=== PATIENT | male | born 1950 | race Caucasian/White ===

== ENCOUNTER 2022-04-03 00:55 | Day surgery (SDC) | payer MEDICARE, SELFPAY ==
[2022-03-25 11:39] VITALS: BMI 34.9
[2022-04-03 06:18] VITALS: BP 129/72; PULSE 76; RESP 16; TEMP 36.3; O2SAT 100; BMI 34.2
[2022-04-03 06:32] LABS: Glucose Point of Care 106 mg/dl (65-105)
[2022-04-03] MEDS: LACTATED RINGERS 1,000 ML 150 ML IV CONT (06:32)
--- NOTE | 2022-04-03 07:26 | WPDANESEPPF ---
Anes - Initial Pre Proc Eval Procedure: Operation Date: 04/03/22 07:30 Proposed Procedures p Screening Colonoscopy - Jone Winn MD Date/Time: 04/03/22 07:26 Surgeon: Jone Winn MD Pre Op Diagnosis: hx of polyps, family hx colon ca Patient Data Age: 71 Gender: M Height: 1.83 m Weight: 114.5 kg Last Vital Signs Temp 97.4 F L 04/03/22 06:18 Pulse 76 04/03/22 06:18 Resp 16 04/03/22 06:18 BP 129/72 04/03/22 06:18 Pulse Ox 100 04/03/22 06:18 O2 Del Method Room Air 04/03/22 06:18 Allergies Allergy/AdvReac Type Severity Reaction Status Date / Time No Known Allergies Allergy Verified 04/03/22 06:15 Home Medications Medication Instructions Recorded Confirmed Type Adult Probiotic 1 tab-cap PO DAILY 03/25/22 04/03/22 History amlodipine 5 mg tablet 5 mg PO DAILY 03/25/22 04/03/22 History apixaban 5 mg tablet (Eliquis) 5 mg PO BID 03/25/22 04/03/22 History cetirizine 10 mg tablet (Zyrtec) 10 mg PO DAILY 03/25/22 04/03/22 History cholecalciferol (vitamin D3) 50 50 mcg PO DAILY 03/25/22 04/03/22 History mcg (2,000 unit) tablet (Vitamin D3) empagliflozin 25 mg tablet 12.5 mg PO DAILY 03/25/22 04/03/22 History finasteride 5 mg tablet 5 mg PO DAILY 03/25/22 04/03/22 History fluoxetine 40 mg capsule 40 mg PO DAILY 03/25/22 04/03/22 History furosemide 20 mg tablet 20 mg PO DAILY 03/25/22 04/03/22 History isosorbide mononitrate 30 mg 30 mg PO DAILY 03/25/22 04/03/22 History tablet,extended release 24 hr lisinopril 20 mg tablet 20 mg PO DAILY 03/25/22 04/03/22 History metformin 500 mg tablet 250 mg PO BID 03/25/22 04/03/22 History metoprolol succinate 25 mg 12.5 mg PO DAILY 03/25/22 04/03/22 History tablet,extended release 24 hr psyllium husk 3.4 gram/5.4 gram 1 tsp PO DAILY 03/25/22 04/03/22 History oral powder (Metamucil) rabeprazole 20 mg tablet,delayed 20 mg PO BID 03/25/22 04/03/22 History release rosuvastatin 40 mg tablet 20 mg PO HS 03/25/22 04/03/22 History spironolactone 25 mg tablet 25 mg PO DAILY 03/25/22 04/03/22 History Laboratory Tests 04/03/22 06:24 POC Capillary Glucose 106 mg/dl H mg/dl (65-105) Patient hx anesthesia problems: none Family hx anesthesia problems: none Results Review: All pre-operative results and documents have been reviewed as part of the pre-operative evaluation. [facility] Social History Social History Smoking packs per day: 3 Smoking cigarettes per day: 60.0 Years smoked: 25 Smoking pack-years: 75.00 Tobacco type: cigarettes Alcohol intake: current Drinks per week: 12 Alcohol use details: BEERS Substance use: never Substance use type: does not use Living arrangements: with family Spiritual care concerns: No Anes - Eval Final PreProcedure Day of Procedure 04/03/22 07:26 Patient weight: obese Heart: regular rate and rhythm Lungs: clear to auscultation Airway: Mallampati scale class III Neurological: alert and oriented Last oral intake: >/= 8 hours ASA classification: III Emergent: no Anesthetic plan: proceed Anesthesia type and monitoring: general GIVS and standard monitoring Results Review: All pre-operative results and documents have been reviewed as part of the pre-operative evaluation. Informed Consent: The patient's anesthetic plan and its attendant risks and benefits were discussed with the patient/family/POA. Questions were solicited and answers provided to the satisfaction of the patient/family/POA.
--- NOTE | 2022-04-03 07:28 | PM.HPGS ---
History of Present Illness History of Present Illness Consent: Risks, benefits, and alternatives have been discussed and questions answered. Patient agrees to proceed with procedure. Chief complaint: hx of polyps, family hx colon ca Narrative: Fitz Alberto is a 71 year old male Presents for screening colonoscopy. Patient's current weight appetite bowel movements are normal. Patient denies abdominal pain. He has had no bleeding. Patient reports that his mother had colon cancer. Patient self was found to have a large colon polyp requiring surgical resection 2011. Patient presents today for follow-up colonoscopy. Previous workup apparently done in [place]. Review of Systems Review of Systems: Rib review of systems is noncontributory. [facility] Social History Social History Smoking packs per day: 3 Smoking cigarettes per day: 60.0 Years smoked: 25 Smoking pack-years: 75.00 Tobacco type: cigarettes Alcohol intake: current Drinks per week: 12 Alcohol use details: BEERS Substance use: never Substance use type: does not use Living arrangements: with family Spiritual care concerns: No Meds Home Medications and Allergies Home Medications Medication Instructions Recorded Confirmed Type Adult Probiotic 1 tab-cap PO DAILY 03/25/22 04/03/22 History amlodipine 5 mg tablet 5 mg PO DAILY 03/25/22 04/03/22 History apixaban 5 mg tablet (Eliquis) 5 mg PO BID 03/25/22 04/03/22 History cetirizine 10 mg tablet (Zyrtec) 10 mg PO DAILY 03/25/22 04/03/22 History cholecalciferol (vitamin D3) 50 50 mcg PO DAILY 03/25/22 04/03/22 History mcg (2,000 unit) tablet (Vitamin D3) empagliflozin 25 mg tablet 12.5 mg PO DAILY 03/25/22 04/03/22 History finasteride 5 mg tablet 5 mg PO DAILY 03/25/22 04/03/22 History fluoxetine 40 mg capsule 40 mg PO DAILY 03/25/22 04/03/22 History furosemide 20 mg tablet 20 mg PO DAILY 03/25/22 04/03/22 History isosorbide mononitrate 30 mg 30 mg PO DAILY 03/25/22 04/03/22 History tablet,extended release 24 hr lisinopril 20 mg tablet 20 mg PO DAILY 03/25/22 04/03/22 History metformin 500 mg tablet 250 mg PO BID 03/25/22 04/03/22 History metoprolol succinate 25 mg 12.5 mg PO DAILY 03/25/22 04/03/22 History tablet,extended release 24 hr psyllium husk 3.4 gram/5.4 gram 1 tsp PO DAILY 03/25/22 04/03/22 History oral powder (Metamucil) rabeprazole 20 mg tablet,delayed 20 mg PO BID 03/25/22 04/03/22 History release rosuvastatin 40 mg tablet 20 mg PO HS 03/25/22 04/03/22 History spironolactone 25 mg tablet 25 mg PO DAILY 03/25/22 04/03/22 History Allergies Allergy/AdvReac Type Severity Reaction Status Date / Time No Known Allergies Allergy Verified 04/03/22 06:15 Vital Signs Vital Signs - 24 hr 04/03/22 06:18 Temperature 97.4 F L Pulse Rate 76 Respiratory Rate 16 Blood Pressure 129/72 Pulse Oximetry 100 Oxygen Delivery Room Air Exam Narrative: For physical exam reveals patient to be alert. Vital signs stable. HEENT exam is unremarkable. Patient is anicteric. Lungs are clear to auscultation and percussion. Heart is without murmur or extra sounds. Abdomen bowel sounds are present soft nontender with no organomegaly. Digital external rectal exam is normal. Assessment and Plan Assessment and plan (1) History of colon polyps: Code(s): Z86.010 - Personal history of colonic polyps Status: Acute Assessment and Plan: Patient was found to have large colon polyp requiring surgical resection 2011. Plan for surveillance colonoscopy now and consider this at least every 5 years in the future. Further recommendations may be given after colonoscopy. (2) Family history of colon cancer in mother: Code(s): Z80.0 - Family history of malignant neoplasm of digestive organs Status: Acute Assessment and Plan: Patient's mother had colon cancer. Plan for surveillance colonoscopy at this time.
[2022-04-03 07:59] VITALS: BP 102/63; PULSE 70; RESP 20; O2SAT 93
[2022-04-03 08:09] VITALS: BP 98/59; PULSE 70; RESP 19; O2SAT 95
--- NOTE | 2022-04-03 08:12 | SUR.PHASEII ---
Educated patient to resume Eliquis tomorrow 04/04/[address] Winn verbal order.
[2022-04-03 08:19] VITALS: BP 110/67; PULSE 70; RESP 14; O2SAT 96
== END 2022-04-03 08:29 | disposition home or self-care (01) ==
PROVIDERS: PCP Pediatrics; Visit Provider Internal Medicine Gastroenterology
PROC: 0DJD8ZZ Inspection of Lower Intestinal Tract, Via Natural or Artificial Opening Endoscopic (ICD-10-PCS; CPT 45378; principal; 2022-04-03 07:30)
DX: Z12.11 Encounter for screening for malignant neoplasm of colon (principal); D12.2 Benign neoplasm of ascending colon; K64.8 Other hemorrhoids; K57.30 Diverticulosis of large intestine without perforation or abscess without bleeding; Z80.0 Family history of malignant neoplasm of digestive organs; Z79.84 Long term (current) use of oral hypoglycemic drugs; F17.210 Nicotine dependence, cigarettes, uncomplicated; E66.9 Obesity, unspecified; Z68.34 Body mass index [BMI] 34.0-34.9, adult; Z79.01 Long term (current) use of anticoagulants
CPT/HCPCS: 45385; 82948; 88305; J2704; J7120

== ENCOUNTER 2023-06-29 13:50 | Outpatient (CLI) | payer MEDICARE, SELFPAY ==
--- NOTE | 2023-06-29 15:08 | ECG_ITS ---
SEE SCANNED COPY FOR CONFIRMED REPORT MTDD
[2023-06-29 15:57] LABS: Basophils Percent Auto 0.7 % (0.2-1.2); Eosinophils Absolute Auto 0.2 K/mm3 (0-0.3); Eosinophils Percent Auto 2.6 % (0-4.4); Hematocrit 43.8 % (42.0-52.0); Immature Granulocyte Absolute 0.01 K/mm3 (0.00-0.031); Immature Granulocyte Percent A 0.2 % (0-0.5); Lymphocytes Absolute Auto 1.13 K/mm3 (0.9-3.2); Lymphocytes Percent Auto 19.3 % (18.3-44.2); Mean Corpuscular HGB Conc 34.2 g/dl (32-36); Mean Corpuscular Hemoglobin 32.5 pg (26-34); Mean Corpuscular Volume 94.8 fl (80-100); Mean Platelet Volume 9.4 fl (7.4-10.4); Monocytes Absolute Auto 0.9 K/mm3 (0.1-0.6); Neutrophils Absolute Auto 3.6 K/mm3 (1.3-6.7); Neutrophils Percent Auto 62.2 % (45.5-73.1); Platelet Count Result 165 k/mm3 (150-375); Red Blood Count 4.62 M/mm3 (4.6-6.20); Red Cell Distribution Width 13.3 % (11.5-14.5); White Blood Count 5.9 K/mm3 (4.5-10.0)
[2023-06-29 16:06] LABS: Urine Cotinine NEGATIVE
[2023-06-29 16:07] LABS: Albumin Level 4.6 g/dL (3.5-5.1); Anion Gap 5 mmol/L (4-12); Blood Urea Nitrogen 12 mg/dL (9-20); Calcium 9.4 mg/dL (8.4-10.2); Carbon Dioxide 29 mmol/L (22-30); Chloride 102 mmol/L (98-107); Estimated Glomerular Filt Rate > 60; Glucose 90 mg/dL (65-110); Hemoglobin A1C 4.9 % (<5.7); Sodium 136 mmol/L (137-145)
== END 2023-06-29 13:51 | disposition home or self-care (01) ==
LOC: ANHSURGERY 13:55
PROVIDERS: PCP Pediatrics; Visit Provider Orthopaedic Surgery
DX: M17.12 Unilateral primary osteoarthritis, left knee (principal); Z01.818 Encounter for other preprocedural examination
CPT/HCPCS: 80048; 80307; 82040; 83036; 85025; 87081; 93005

== ENCOUNTER 2023-07-16 00:45 | Day surgery (SDC) | payer MEDICARE, SELFPAY ==
[2023-06-29 14:01] VITALS: BMI 35.3
--- NOTE | 2023-06-29 14:34 | PC.NURSE ---
Report to the Outpatient Waiting Room, entrance under the green pavilion located off [facility], at time _0600 on date __07/16/23 . Planned Procedure Time: __729 . Time changes happen often and if your time is changed the preop area will call you the afternoon before. - You and your visitor will be asked to self-screen and do not enter if you have any COVID symptoms. - A mask is optional within the hospital at this time. Patients may have clear liquids (water, carbonated beverages, clear teas, apple juice) until 3 hours prior to surgery(4:30 AM) with a maximum of 20 ounces. - No food from midnight until time of surgery - Infants may have breast milk until 4 hours before surgery, formula 6 hours prior to surgery. - Children will be allowed to drink immediately following surgery. If applicable, please bring a bottle or sippy cup to assist with drinking. Juice, water, soda, and popsicles are readily available. For infants on formula, please bring formula the day of surgery. Pacifiers are allowed. Take the following medications with a SIP of water the morning of surgery: ___AMLODIPINE,FLUOXETINE,ISOSORBIDE,METOPROLOL DO NOT STOP ANY OF YOUR OTHER PRESCRIPTION MEDICATIONS PRIOR TO SURGERY ?EXCEPT THE FOLLOWING Medications to discontinue per physician __HOLD ELIQUIS 3 DAYS PRE OP PER DR MCLEAN/DR DUNCAN LAST DOSE 07/12/23 BUT TAKE 81MG ASPIRIN ____HOLD ALL VITAMINS AND SUPPLEMENTS 3 DAYS PRE OP.LAST DOSE 07/12/23 TOTAL JOINT CLASS 07/01/23 AT 10 AM Please no make-up, nail turkish, hairspray, perfume, deodorant, or body powder the day of surgery. No jewelry (including any body piercings) or valuables the day of surgery, leave them at home. Please take a shower or bath the night before, or the morning of, surgery with an antibacterial soap. Wear comfortable, loose fitting clothing. Children are encouraged to wear pajamas. - Jewelry must be removed prior to entering the operating room. Rings and piercings that are not removed may be cut off. - The hospital will not accept responsibility for valuables. - Please leave all valuables, including medications, at home the day of surgery. If you are going home after surgery, a licensed industrial tractor driver must drive you home. - NO public transportation without another adult if you receive anesthesia. - We recommend that an adult stay with you for 24 hours following discharge. - We also recommend that you do not drive, make important decision, drink alcoholic beverages, or take any drugs that were not prescribed by your health care provider for at least 24 hours after your discharge time. Follow any additional instructions given to you from your surgeon. If you or anyone in your household have experienced Covid symptoms in the past week, please notify your surgeon or the nurse liaison at the phone number below for possible testing. VRBAL AND WRITTEN instructions given to _PT AND RICARDA and asked if any additional questions and then verbalized understanding. Patient advised to call surgeon office or pre surgery nurse liaison [phone] if any additional questions.
[2023-06-29 14:59] VITALS: BP 110/60; PULSE 70; RESP 18; TEMP 37.1; O2SAT 97
--- NOTE | 2023-07-15 13:10 | PM.IMHP ---
H&P: HPI History of Present Illness Date/Time: 07/15/23 13:10 Chief Complaint: left osteoarthritis left Narrative: is 72-year-old gentleman who presents for left total knee arthroplasty. Patient of Dr.Siefken [place]. He has had prior cortisone injection gave him only short-term relief. He takes Eliquis for atrial fibrillation and cannot take nonsteroidal anti-inflammatory medication. He is limited with his activities and has pain on a daily basis with his left knee and would like to proceed with total knee replacement. Patient's x-rays demonstrate [id number] medial compartment osteoarthritis and mild patellofemoral arthritis in the left knee. Patient had a cortisone injection in his right knee on 06/12/2023. Patient had cardiology evaluation in August of 2022 including coronary artery catheterization which per the patient showed 2 small blockages in his coronary arteries both of which were too small to stent. The report to the catheterization indicated normal right and left side filling pressures normal rest pulmonary artery pressure normal mean pulmonary capillary wedge pressure. There was evidence of mild to moderate coronary artery disease. There was slow coronary flow with ectatic right coronary artery. Was felt that he might have a component of microvascular dysfunction causing some of his atypical chest pain and he was placed on increased dose of isosorbide and Ranexa. Patient denies any exertional chest pain but does have chronic exertional dyspnea without recent change. He was felt to proceed with knee replacement surgery with low cardiac risk without further cardiovascular workup. Patient was advised to hold his at Eliquis 3 days before surgery and start 81 mg baby aspirin daily to lower his cardiovascular risk because of his mild to moderate coronary artery disease. Patient has a history of chronic diastolic congestive heart failure listed in the past. [facility] Past Medical History Medical History (Updated 06/14/23 @ 15:22 by Louis Maza MD) Afib CAD (coronary artery disease) Diabetes Heart disease Pacemaker Surgical History Surgical History (Updated 06/12/23 @ 09:03 by Zena Hernandes CMA) History of arthroscopic knee surgery History of cardiac radiofrequency ablation History of cervical spinal surgery 1986 History of cholecystectomy 1995 History of colon surgery History of hand surgery History of lumbar surgery 1995, 1997 History of shoulder surgery History of sinus surgery , Social History Social History (Updated 06/12/23 @ 09:10 by Debo Ruff CMA) Smoking packs per day: 3 Smoking cigarettes per day: 60.0 Years smoked: 25 Smoking pack-years: 75.00 Smoking status: Former smoker Tobacco type: cigarettes Smoking end date: 03/02/86 Additional smoking assessment comments: DENIES ANY FORM OF TOBACCO USE Alcohol intake: current Drinks per week: 12 Alcohol use details: BEERS Substance use: never Substance use type: does not use Do You Feel Safe in your Home?: Yes Lack of Transportation: No Lack of Food: Never True Current Housing: I Have Housing Concerned About Future Housing: No Difficulty Paying Gas/Electric Bills: No Difficulty Paying for Meds: No Currently Unemployed: No Education: High School Diploma/GED Difficulty w/ Childcare or Family Care: No Living arrangements: with family Occupation/Education: retired Spiritual care concerns: No Meds Home Medications and Allergies Home Medications Medication Instructions Recorded Confirmed Type Adult Probiotic 1 tab-cap PO DAILY 03/25/22 06/29/23 History amlodipine 5 mg tablet 5 mg PO DAILY 03/25/22 06/29/23 History apixaban 5 mg tablet (Eliquis) 5 mg PO BID 03/25/22 06/29/23 History cetirizine 10 mg tablet (Zyrtec) 10 mg PO DAILY 03/25/22 06/29/23 History cholecalciferol (vitamin D3) 50 50 mcg PO DAILY 03/25/22 06/29/23 History mcg (2,000 unit) t
[2023-07-16] VITALS (12 sets, daily range): BP systolic 89–137; BP diastolic 52–80; PULSE 70–75; RESP 9–20; TEMP 36.1–37.1; O2SAT 91–98
--- NOTE | ~2023-07-16 | XR_ITS ---
EXAMINATION: [id number] DATE: 07/16/2023 11:51 INDICATION: Postoperative evaluation following left total knee arthroplasty. TECHNIQUE: Anteroposterior and lateral views of the left knee were obtained. COMPARISON: None. FINDINGS: Left total knee arthroplasty without patellar resurfacing appears well seated and in near anatomic al ignment. No fractures identified. Expected postoperative subcutaneous and intra-articular gas. IMPRESSION: 1. Left total knee arthroplasty, negative for postoperative purposes. Reviewed, dictated and finalized at location A.
[2023-07-16] MEDS: ACETAMINOPHEN 500 MG TABLET 1000 MG PO ×3 (06:35→20:31)
[2023-07-16] MEDS: LACTATED RINGERS 1,000 ML 30 ML IV CONT ×2 (06:40→11:50)
[2023-07-16] MEDS: VANCOMYCIN 1,750 MG/NS 500 ML BAG 250 MG IVPB (06:40)
[2023-07-16] MEDS: TRANEXAMIC ACID 1,000MG/ISO100 1,000 MG/100 ML BAG 200 MG IVPB (06:40)
[2023-07-16 06:55] LABS: Glucose Point of Care 119 mg/dl (65-105)
--- NOTE | 2023-07-16 07:05 | WPDHPUPDATE1 ---
History and Physical Update Update Date/Time: 07/16/23 07:05 History and Physical has been reviewed, including an updated exam of the patient. There are NO changes in the patient's condition. Risks, benefits, and alternatives have been discussed and questions answered. Patient agrees to proceed with procedure.
--- NOTE | 2023-07-16 07:17 | WPDANESEPPF ---
Anes - Initial Pre Proc Eval Procedure: Operation Date: 07/16/23 07:30 Proposed Procedures p Left Total Knee Arthroplasty - Louis Maza MD Date/Time: 07/16/23 07:17 Surgeon: Louis Maza MD Pre Op Diagnosis: OA left knee Patient Data Age: 72 Gender: M Height: 1.82 m Weight: 115.7 kg Last Vital Signs Temp 98.7 F 06/29/23 14:59 Pulse 70 06/29/23 14:59 Resp 18 06/29/23 14:59 BP 110/60 06/29/23 14:59 Pulse Ox 97 06/29/23 14:59 O2 Del Method Room Air 06/29/23 14:59 Allergies Allergy/AdvReac Type Severity Reaction Status Date / Time No Known Allergies Allergy Verified 06/29/23 14:02 Home Medications Medication Instructions Recorded Confirmed Type Adult Probiotic 1 tab-cap PO DAILY 03/25/22 07/16/23 History amlodipine 5 mg tablet 5 mg PO DAILY 03/25/22 07/16/23 History apixaban 5 mg tablet (Eliquis) 5 mg PO BID 03/25/22 07/16/23 History cetirizine 10 mg tablet (Zyrtec) 10 mg PO DAILY PRN ALLERGIES 03/25/22 06/29/23 History cholecalciferol (vitamin D3) 50 50 mcg PO DAILY 03/25/22 07/16/23 History mcg (2,000 unit) tablet (Vitamin D3) empagliflozin 25 mg tablet 12.5 mg PO DAILY 03/25/22 07/16/23 History finasteride 5 mg tablet 5 mg PO DAILY 03/25/22 07/16/23 History fluoxetine 40 mg capsule 40 mg PO DAILY 03/25/22 07/16/23 History furosemide 20 mg tablet 20 mg PO DAILY 03/25/22 07/16/23 History isosorbide mononitrate 30 mg 60 mg PO DAILY 03/25/22 07/16/23 History tablet,extended release 24 hr lisinopril 20 mg tablet 20 mg PO DAILY 03/25/22 07/16/23 History metoprolol succinate 25 mg 25 mg PO DAILY 03/25/22 07/16/23 History tablet,extended release 24 hr psyllium husk 3.4 gram/5.4 gram 1 tsp PO DAILY 03/25/22 07/16/23 History oral powder (Metamucil) rabeprazole 20 mg tablet,delayed 20 mg PO BID 03/25/22 07/16/23 History release rosuvastatin 40 mg tablet 20 mg PO HS 03/25/22 07/16/23 History spironolactone 25 mg tablet 25 mg PO DAILY 03/25/22 07/16/23 History azelastine 137 mcg-fluticasone 50 1 spray intranasal PRN PRN Allergy 06/12/23 06/29/23 History mcg/spray nasal spray Symptoms fluticasone propionate 50 2 spray intranasal PRN PRN Allergy 06/12/23 06/29/23 History mcg/actuation nasal Symptoms spray,suspension (Allergy Relief (fluticasone)) nitroglycerin 0.4 mg sublingual 0.4 mg sublingual Q5M PRN Chest 06/12/23 06/29/23 History tablet Pain tizanidine 4 mg capsule 4 mg PO DAILY PRN Muscle Pain 06/12/23 07/16/23 History acetaminophen 500 mg capsule 1,000 mg PO Q6H PRN Pain 06/29/23 06/29/23 History Laboratory Tests 07/16/23 07/16/23 06:31 06:41 POC Capillary Glucose 119 H mg/dl (65-105) Blood Type Pending Antibody Screen Pending Patient hx anesthesia problems: none Family hx anesthesia problems: none Results Review: All pre-operative results and documents have been reviewed as part of the pre-operative evaluation. [facility] Past Medical History Medical History Afib CAD (coronary artery disease) Diabetes Heart disease Pacemaker Surgical History Surgical History History of arthroscopic knee surgery History of cardiac radiofrequency ablation History of cervical spinal surgery 1986 History of cholecystectomy 1995 History of colon surgery History of hand surgery History of lumbar surgery 1995, 1997 History of shoulder surgery History of sinus surgery , Social History Social History Smoking packs per day: 3 Smoking cigarettes per day: 60.0 Years smoked: 25 Smoking pack-years: 75.00 Smoking status: Former smoker Tobacco type: cigarettes Smoking end date: 03/02/86 Additional smoking assessment comments: DENIES ANY FORM OF TOBACCO USE Alcohol intake: current Drinks per week: 12 Al
[2023-07-16] MEDS: ceFAZolin 2 GM/D5W 50 ML 2 GM/50 ML BAG IVPB ×3 (07:37→23:25)
[2023-07-16] MEDS: ceFAZolin SODIUM 1 GM VIAL 3 GM (08:16)
[2023-07-16] MEDS: SODIUM CHLORIDE 0.9% IV 37.7 ML, MORPHINE SULFATE INJ (*CRX) 2 MG, ROPivacaine HCL 1% 2... INFILTRATE (08:17)
[2023-07-16] MEDS: GENTAMICIN BONE CEMENT REFOBACIN 1 EACH TOPICAL (09:55)
[2023-07-16] MEDS: ceFAZolin SODIUM 1 GM VIAL 2 GM IV PUSH (10:11)
[2023-07-16] MEDS: TRANEXAMIC ACID 1,000 MG/10 ML AMPUL 1000 MG IV PUSH (10:11)
[2023-07-16 12:08] LABS: Glucose Point of Care 172 mg/dl (65-105)
--- NOTE | 2023-07-16 12:26 | W.PM.PROC2 ---
Procedure Note - Detailed Date of Procedure 07/16/23 Pre-op Diagnosis OA left knee Post-op Diagnosis Same Procedure Performed left total knee arthroplasty Surgeon Louis Maza MD Emergency Management Coordinator [facility] Anesthesia General Description of Procedure patient was brought to the operating room and general anesthesia was administered. He received 2 g Ancef weight based vancomycin 1 g of tranexamic acid preoperatively left knee prepped draped usual fashion. Limb was exsanguinated tourniquet elevated 250 mmHg. Subsequent elevation was to 275 as he became a little bit hypertensive. A 7 in longitudinal midline incision was used and a standard parapatellar arthrotomy medialized. Infrapatellar and suprapatellar fat pads were excised the quadriceps synovectomy carried out. Patella was in excellent condition and I felt suitable for non resurfacing. A conservative lateral facetectomy was performed. A guide grzegorz was inserted on femoral canal after aspiration of canal contents using the 5 degree valgus cutting bushing 9 mm of bone removed the distal femur. The tibial plateau was cut perpendicular to the axis of the tibia removing 2 mm of bone from the low point medial tibial plateau. Meniscal remnants were excised and the PCL was recessed. Flexion gap at 90? measured 9 mm medially 11 mm laterally. Femoral sizing guide was applied set at 3? of external rotation which matched Whitesides line. Posterior referencing pinholes were placed. The 72.5 vanguard cutting block was applied the AP and chamfer cuts were made and the femoral component was an excellent fit flush with the anterior cortex and the component was 2 mm narrower than the distal with. The tibia was sized to a size 79 which fit line to line posterolateral to anteromedial placed at proper rotation. This was punched and we trialed with the 10 insert. At 90? there was 2 mm of play medially but no play laterally and was little bit tight laterally to anterior posterior drawer. In extension the knee lacked about 3? of extension and had mm of play medially no play laterally. In assessing the alignment of the tibial cut, I felt we were in 1-2 degrees of varus and therefore I elected to carefully recut the tibia making a flush cut medially and removing about 1/2 mm of bone from the lateral plateau. We confirmed that the tibial tray sat flush with no rocking and pre punched and this time with the 10 insert on trialing the knee had 1 mm of lateral opening 2 mm of medial opening and with the arthrotomy closed with towel clips 1 mm medial opening and excellent AP stability and gravity flexion to 140 with no lift off if poly. And extension we had a barely positive bounce with them only a mm of play medially and laterally. With the arthrotomy approximated, there was a little bit more flexion lacking. Therefore an additional 1 mm bone was removed the distal femur. Posterior femoral osteophytes were minimal but posterior femoral bone was carefully removed. On trialing the knee came out to full extension with negative bounce 1/2 mm of medial lateral opening excellent stability in all positions. Patellar tracking was normal. Lug holes were drilled the distal femur trial and since we had put the tourniquet down at 90 minutes we re-exsanguinated the leg tourniquet was really mated this time. A step drill was used to make numerous perforations in the bone cut surfaces as the bone was very dense and the bony surfaces thoroughly irrigated dried. Using 2 batches of methylmethacrylate 1 the gentamicin powder, cement was immediately applied the 79 tibial component then the 72.5 left CR femoral component. Cement applied the tibia pressurized tibial component fully seated cement applied to the femur the femoral component fully seated the knee brought into extension with 11 mm 5 1 insert for cement pressurization the tourniquet released. Total tourniquet time was about 105 minutes. After cement hardening excess cement was sought f
--- NOTE | 2023-07-16 14:08 | PC.NURSE ---
This patient, Fitz Alberto, was admitted to [facility] Room 314-02. Patient/family oriented to hospital policies and general routines including ID bracelet, bed and alarms, visiting hours, pain management, procedures, bathroom and other care routines, personal items, smoking policy, room service/diet, and visiting hours. Information on how to activate the Rapid Response Team has been discussed. Patient/Family are encouraged to report perceived risks to care and to ask questions if they do not understand what they are told or what they should do.
[2023-07-16] MEDS: SODIUM CHLORIDE 0.9% IV 1,000 ML 125 ML IV CONT (15:56)
[2023-07-16] MEDS: FUROSEMIDE 20 MG TABLET PO (15:57)
[2023-07-16] MEDS: FINASTERIDE 5 MG TABLET PO (15:57)
[2023-07-16] MEDS: SPIRONOLACTONE 25 MG TABLET PO (15:57)
[2023-07-16] MEDS: FLUoxetine HCL 20 MG CAPSULE 40 MG PO (15:57)
[2023-07-16] MEDS: oxyCODONE HCL (*CRX) 5 MG TAB IR PO ×3 (15:57→23:26)
[2023-07-16] MEDS: SENNA/DOCUSATE SODIUM TABLET 2 TAB PO (16:00)
[2023-07-16] MEDS: PANTOPRAZOLE 40 MG TABLET PO (16:00)
[2023-07-16 16:41] LABS: Glucose Point of Care 262 mg/dl (65-105)
--- NOTE | 2023-07-16 17:24 | PM.IMCN ---
Assessment and Plan Assessment and plan (1) Primary localized osteoarthritis of both knees: Code(s): M17.0 - Bilateral primary osteoarthritis of knee Status: Acute Assessment and Plan: Patient underwent a left knee total arthroplasty on 07/15. Done by [facility]. Primary management through orthopedic team. - ambulate with assistance and up to chair - use IS - neurovasc checks - see order for intervals - SCDs - resume diet - pain management - zofran PRN for nausea - monitor labs in AM - CBC and BMP - bowel regimen: docusate/senna, polyethylene glycol - maintenance fluids: NS 125 mL/hr - prophylactic abx - Ancef - PT/OT (2) Afib: Code(s): I48.91 - Unspecified atrial fibrillation Status: Acute Assessment and Plan: - hold Eliquis 5 mg b.i.d., continue as Eliquis 2.5 mg b.i.d. per ortho team - continue metoprolol 25 mg ER daily (3) Diabetes: Code(s): E11.9 - Type 2 diabetes mellitus without complications Status: Acute Assessment and Plan: - hypoglycemia protocol - POC blood glucose ACHS - home medication: continue Jardiance - correct regimen ordered - low dose TIDWM and HS (4) CAD (coronary artery disease): Code(s): I25.10 - Atherosclerotic heart disease of [place] coronary artery without angina pectoris Status: Acute Assessment and Plan: - continue rosuvastatin 20 mg daily, Imdur ER 60 mg daily - add aspirin 81 mg daily (5) CHF (congestive heart failure): Code(s): I50.9 - Heart failure, unspecified Status: Acute Assessment and Plan: - chronic, diastolic - continue spironolactone 25 mg daily, Lasix 20 mg daily Plan Patient here for left total knee arthroplasty, done today on 07/15. Medications reviewed and resumed as appropriate. Plan for PT/ OT. Pain control. reports he is doing well postoperatively, some mild achiness in left knee. Diet: diabetic GI Prophylaxis: pantoprazole p.o. b.i.d. DVT Prophylaxis: Eliquis 2.5 mg b.i.d. and SCDs Lines: peripheral Code Status: full code HPI Date of Consult Consult date: 07/18/23 (00:00) Requesting Physician: Louis Maza MD Primary Care Provider: Karan Renteria MD Consult Narrative Reason for consult: Medical Managment Narrative: 72 y/o M presented here for surgical management of his osteoarthritis of the L knee with PMH of Afib, CAD, DM, and pacemaker in place. Patient has received cortisone injections for his left knee osteoarthritis Which only provided temporary relief. Poor candidate for NSAIDs due to being on anticoagulation secondary to AFib. Pain was limiting his activities on a daily basis. XR showed [id number] medial compartment osteoarthritis and mild patellofemoral arthritis in the left knee. Patient elected to move forward with surgical management via total knee replacement. last cardiac evaluation in August of 2022. Has chronic exertional dyspnea, reports no recent change. Eliquis held 3 days preop and started on daily ASA to reduce his cardiovascular risk. Patient is currently endorsing mild achiness to left knee. Denying significant postoperative pain or postoperative nausea / vomiting. No numbness or tingling in LLE. Initial VS at presentation: then 8.7? F, HR 70, R 18, 110/60, and 97% on RA. Preop workup showed (06/29/2023): No leukocytosis, no anemia, no significant electrolyte derangements, creatinine 0.9 and GFR >60. Review of Systems Review of Systems: All systems reviewed & are unremarkable except as noted in HPI and below PMFSH Past Medical History Medical History Afib CAD (coronary artery disease) CHF (congestive heart failure) Diabetes Family history of colon cancer in mother History of colon polyps Pacemaker Surgical History Surgical History History of arthroscopic knee surgery
[2023-07-16] MEDS: VANCOMYCIN 1,000 MG/NS 250 ML 1,000 MG/250 ML BAG 250 MG IVPB (17:54)
[2023-07-16] MEDS: MORPHINE SULFATE (*CRX) 2 MG/ML INJ IV PUSH (20:30)
[2023-07-16] MEDS: ROSUVASTATIN 20 MG TABLET PO (20:31)
[2023-07-16] MEDS: TIZANIDINE HCL 4 MG TABLET PO (20:31)
[2023-07-16 21:29] LABS: Glucose Point of Care 116 mg/dl (65-105)
[2023-07-17] MEDS: ACETAMINOPHEN 500 MG TABLET 1000 MG PO ×3 (02:10→13:44)
[2023-07-17] MEDS: oxyCODONE HCL (*CRX) 5 MG TAB IR PO ×7 (02:10→14:39)
[2023-07-17 03:09] VITALS: BP 121/72; PULSE 72; RESP 20; TEMP 35.5; O2SAT 98
[2023-07-17] MEDS: VANCOMYCIN 1,000 MG/NS 250 ML 1,000 MG/250 ML BAG 250 MG IVPB (06:18)
[2023-07-17 07:24] LABS: Basophils Percent Auto 0.2 % (0.2-1.2); Eosinophils Percent Auto 0.2 % (0-4.4); Hematocrit 33.9 % (42.0-52.0); Hemoglobin 11.6 g/dL (14.0-18.0); Immature Granulocyte Absolute 0.02 K/mm3 (0.00-0.031); Immature Granulocyte Percent A 0.2 % (0-0.5); Lymphocytes Absolute Auto 0.77 K/mm3 (0.9-3.2); Lymphocytes Percent Auto 8.9 % (18.3-44.2); Mean Corpuscular HGB Conc 34.2 g/dl (32-36); Mean Corpuscular Hemoglobin 32.8 pg (26-34); Mean Corpuscular Volume 95.8 fl (80-100); Mean Platelet Volume 9.1 fl (7.4-10.4); Monocytes Absolute Auto 1.1 K/mm3 (0.1-0.6); Monocytes Percent Auto 12.9 % (2.6-8.5); Neutrophils Absolute Auto 6.7 K/mm3 (1.3-6.7); Neutrophils Percent Auto 77.6 % (45.5-73.1); Platelet Count Result 121 k/mm3 (150-375); Red Blood Count 3.54 M/mm3 (4.6-6.20); Red Cell Distribution Width 13.4 % (11.5-14.5); White Blood Count 8.6 K/mm3 (4.5-10.0)
[2023-07-17 07:38] LABS: Anion Gap 6 mmol/L (4-12); Blood Urea Nitrogen 19 mg/dL (9-20); Calcium 8.5 mg/dL (8.4-10.2); Carbon Dioxide 23 mmol/L (22-30); Chloride 106 mmol/L (98-107); Estimated CRCL calculation 93 ml/min; Estimated Glomerular Filt Rate > 60; Glucose 114 mg/dL (65-110); Potassium 3.9 mmol/L (3.4-5.0); Sodium 135 mmol/L (137-145)
[2023-07-17 08:00] VITALS: BP 115/61; PULSE 70; RESP 16; TEMP 36.6; O2SAT 99
[2023-07-17 08:02] LABS: Glucose Point of Care 120 mg/dl (65-105)
--- NOTE | 2023-07-17 08:16 | WPDANESPN ---
Anes - Prog Note Post-Op Date/Time: 07/17/23 08:16 Cardiovascular status: normal Respiratory status: normal Airway patency: baseline Mental status: baseline Post-Op hydration status: normal Vital Signs: Last Vital Signs Temp 35.5 C L 07/17/23 03:09 Pulse 72 07/17/23 03:09 Resp 20 07/17/23 03:09 BP 121/72 07/17/23 03:09 Pulse Ox 98 07/17/23 03:09 O2 Del Method Room Air 07/16/23 18:48 O2 Flow Rate 2 07/16/23 13:05 Pain Score (VAS): 0 I/O: Intake & Output 07/16/23 07/17/23 07/17/23 23:59 07:59 15:59 Intake Total 540 200 Balance 540 200 Laboratory Tests 07/17/23 06:55 07/17/23 06:55 07/16/23 07/16/23 07/16/23 12:05 16:31 21:26 WBC RBC Hgb Hct MCV MCH MCHC RDW Plt Count MPV Immature Gran % (Auto) Neut % (Auto) Lymph % (Auto) [place] % (Auto) Eos % (Auto) Baso % (Auto) Lymph # (Auto) [place] # (Auto) Eos # (Auto) Baso # (Auto) Abs Immat Gran (auto) Absolute Neuts (auto) Absolute Nucleated RBC Nucleated RBC % Sodium Potassium Chloride Carbon Dioxide Anion Gap BUN Creatinine Estim Creat Clear Calc Estimated GFR Glucose POC Capillary Glucose 172 H 262 H 116 H Calcium 07/17/23 07/17/23 06:55 07:52 WBC 8.6 RBC 3.54 L Hgb 11.6 L D Hct 33.9 L MCV 95.8 MCH 32.8 MCHC 34.2 RDW 13.4 Plt Count 121 L MPV 9.1 Immature Gran % (Auto) 0.2 Neut % (Auto) 77.6 H Lymph % (Auto) 8.9 L [place] % (Auto) 12.9 H Eos % (Auto) 0.2 Baso % (Auto) 0.2 Lymph # (Auto) 0.77 L [place] # (Auto) 1.1 H Eos # (Auto) 0.0 Baso # (Auto) 0.0 Abs Immat Gran (auto) 0.02 Absolute Neuts (auto) 6.7 Absolute Nucleated RBC 0.000 Nucleated RBC % 0.0 Sodium 135 L Potassium 3.9 Chloride 106 Carbon Dioxide 23 Anion Gap 6 BUN 19 Creatinine 0.80 Estim Creat Clear Calc 93 Estimated GFR > 60 Glucose 114 H POC Capillary Glucose 120 H Calcium 8.5 Patient Feedback: Patient satisfied with anesthetic care.
[2023-07-17 08:45] VITALS: PULSE 70
[2023-07-17] MEDS: SENNA/DOCUSATE SODIUM TABLET 2 TAB PO (09:16)
[2023-07-17] MEDS: PSYLLIUM POWDER PACKET PO (09:16)
[2023-07-17] MEDS: ASPIRIN 81 MG CHEWABLE TABLET PO (09:17)
[2023-07-17] MEDS: FUROSEMIDE 20 MG TABLET PO (09:17)
[2023-07-17] MEDS: amLODIPine BESYLATE 5 MG TABLET PO (09:17)
[2023-07-17] MEDS: FLUoxetine HCL 20 MG CAPSULE 40 MG PO (09:17)
[2023-07-17] MEDS: PANTOPRAZOLE 40 MG TABLET PO (09:17)
[2023-07-17 09:18] VITALS: PULSE 72
[2023-07-17] MEDS: FINASTERIDE 5 MG TABLET PO (09:18)
[2023-07-17] MEDS: METOPROLOL SUCCINATE EXT REL 25 MG TABCR PO (09:18)
[2023-07-17] MEDS: ISOSORBIDE MONONITRATE 60 MG TAB.ER.24H PO (09:18)
[2023-07-17] MEDS: SPIRONOLACTONE 25 MG TABLET PO (09:18)
[2023-07-17] MEDS: CEFDINIR 300 MG CAPSULE PO (09:18)
[2023-07-17] MEDS: APIXABAN 2.5 MG TABLET PO (09:18)
[2023-07-17] MEDS: CHOLECALCIFEROL 1,000 UNITS TABLET 2000 UNITS PO (09:18)
[2023-07-17] MEDS: ACIDOPHILUS/BULGARICUS CHEWABLE TABLET 1 TABLET PO (09:18)
[2023-07-17] MEDS: EMPAGLIFLOZIN 12.5 MG TABLET PO (09:18)
[2023-07-17] MEDS: polyethylene glycoL 3350 17 GM POWD.PACK PO (09:19)
[2023-07-17] MEDS: ceFAZolin 2 GM/D5W 50 ML 2 GM/50 ML BAG IVPB (09:28)
[2023-07-17 11:46] LABS: Glucose Point of Care 101 mg/dl (65-105)
[2023-07-17 11:56] VITALS: BP 105/55; PULSE 70; RESP 16; TEMP 36.4; O2SAT 95
--- NOTE | 2023-07-17 12:37 | PM.DS ---
DS: Admitting Diagnosis Discharge Date 07/17/2023 Admitting Diagnosis Osteoarthritis left knee DS: Discharge Diagnosis Discharge Diagnosis (1) Status post total left knee replacement: Code(s): Z96.652 - Presence of left artificial knee joint Status: Acute DS: Summary Hospital Course Hospital Course: Patient admitted on 07/16/2023 for total knee replacement. He has done well postoperatively. He has been on a monitor bed. We have resumed a slow but at the lower dose 2.5 mg twice daily for DVT prophylaxis and he will take this crease his Eliquis to 5 mg pre op dosing for atrial fibrillation per he will also take a baby a lower strength of Eliquis because history He has done very well his pain is well controlled he actively bends his knee to 120? and does a straight leg a he is neurologically intact. There is no blood on the dressing. His hemoglobin is 11.6 mild acute blood loss anemia. Platelets slightly low at 121 thought to be due to consumption. BMP normal except for slight decrease in sodium of 135. It was 136 preoperatively. I reviewed the instructions with this patient in detail. He feels confident that he is ready to go home today. Time Spent with Patient Time attestation: Total time spent providing and/or coordinating discharge services: DS: Data Data Completed and Pending Labs on day of discharge: Labs from last 24 hours 07/17/23 07/17/23 07/17/23 11:22 07:52 06:55 WBC 8.6 RBC 3.54 L Hgb 11.6 L D Hct 33.9 L MCV 95.8 MCH 32.8 MCHC 34.2 RDW 13.4 Plt Count 121 L MPV 9.1 Immature Gran % (Auto) 0.2 Neut % (Auto) 77.6 H Lymph % (Auto) 8.9 L [place] % (Auto) 12.9 H Eos % (Auto) 0.2 Baso % (Auto) 0.2 Lymph # (Auto) 0.77 L [place] # (Auto) 1.1 H Eos # (Auto) 0.0 Baso # (Auto) 0.0 Abs Immat Gran (auto) 0.02 Absolute Neuts (auto) 6.7 Absolute Nucleated RBC 0.000 Nucleated RBC % 0.0 Sodium 135 L Potassium 3.9 Chloride 106 Carbon Dioxide 23 Anion Gap 6 BUN 19 Creatinine 0.80 Estim Creat Clear Calc 93 Estimated GFR > 60 Glucose 114 H POC Capillary Glucose 101 120 H Calcium 8.5 07/16/23 07/16/23 21:26 16:31 WBC RBC Hgb Hct MCV MCH MCHC RDW Plt Count MPV Immature Gran % (Auto) Neut % (Auto) Lymph % (Auto) [place] % (Auto) Eos % (Auto) Baso % (Auto) Lymph # (Auto) [place] # (Auto) Eos # (Auto) Baso # (Auto) Abs Immat Gran (auto) Absolute Neuts (auto) Absolute Nucleated RBC Nucleated RBC % Sodium Potassium Chloride Carbon Dioxide Anion Gap BUN Creatinine Estim Creat Clear Calc Estimated GFR Glucose POC Capillary Glucose 116 H 262 H Calcium Discharge Plan Discharge Patient Disposition: Home, Self-Care Discharge Instructions: JUDE MCLEAN M.D [facility] [address] [address] [place] [address] POST-OPERATIVE DISCHARGE INSTRUCTIONS TOTAL KNEE ARTHROPLASTY 1. When resting, do not rest in the chair.When resting, lie on your back, with back flat on the couch or bed, with leg elevated above heart to minimize swelling. You may put a pillow under your head. . Significant swelling could indicate a blood clot and if this occurs call the office (or go to the ER) to have a venous ultrasound. Therefore, do not rest in a chair. 2. At least five times a day spend several minutes stretching your knee into flexion while sitting in the chair and also stretching your knee out straight The abilities to bend your knee fully and straighten your knee fully are two most important knee functions to focus on during your recovery. 3. It is ok to sit in chair to eat, use the toilet and receive a guest and to do your stretching exercises, but, sitting in a chair will cause your leg to swell. Therefore, avoid additional time sitting in the chair. and don't rest in
== END 2023-07-17 14:45 | disposition home or self-care (01) ==
LOC: ANHSURGERY 12:16 → ANH3MEDSUR 13:25
PROVIDERS: PCP Pediatrics; Visit Provider Orthopaedic Surgery
PROC: (CPT 27447; principal; 2023-07-16 07:30)
DX: M17.12 Unilateral primary osteoarthritis, left knee (principal); I48.91 Unspecified atrial fibrillation; I25.10 Atherosclerotic heart disease of native coronary artery without angina pectoris; I50.9 Heart failure, unspecified; E11.9 Type 2 diabetes mellitus without complications; Z95.0 Presence of cardiac pacemaker; Z79.01 Long term (current) use of anticoagulants; Z87.891 Personal history of nicotine dependence; E66.9 Obesity, unspecified; Z68.35 Body mass index [BMI] 35.0-35.9, adult
CPT/HCPCS: 27447; 36415; 73560; 80048; 82948; 85025; 86850; 86900; 86901; 97110; 97116; 97161; 97165; 97530; 97535; A9270; C1713; C1776; J0171; J0690; J1100; J1170; J1885; J2250; J2270; J2371; J2405; J2704; J2795; J3010; J3370; J7030; J7120

== ENCOUNTER 2023-08-24 16:00 | Outpatient (RCR) | payer MEDICARE, SELFPAY ==
--- NOTE | 2023-07-20 14:55 | OPREHPOC ---
Outpatient Therapy Plan of Care This is a Multidisciplinary Plan of Care that may contain components documented by all disciplines (PT, OT, and ST.) PT Problem 1 PT Problem #1 Knowledge Deficit PT Goal 1 Goal [place] and proper performance of HEP Target Visit 4 PT Problem 2 PT Problem #2 Edema PT Goal 1 Goal Demonstrate 2+ cm reduction in joint line edema indicating soft tissue healing. PT Problem 3 PT Problem #3 Impaired Range of Motion PT Goal 1 Goal Demonstrate terminal L knee extension for gait normalization Target Visit 10 PT Goal 2 Goal Demonstrate 125 degrees of L knee flexion for functional squatting and foot clearance Target Visit 10 PT Problem 4 PT Problem #4 Impaired Gait PT Goal 1 Goal Ambulate independently with use of AD and even stride length Target Visit 10 PT Goal 2 Goal Demonstrate ability to perform 20# squat Target Visit 10
--- NOTE | 2023-07-20 14:55 | PTOPEVAL1 ---
Assessment and note entered by Stanley Ugarte, PT Evaluation Information Assessment Status Evaluation Diagnosis Post Operative Left TKA, Left knee pain Onset 06/16/23 Subjective Information Reports that he has been having pain with heel prop and exercises. He fees he is getting better and is rarely having high episodes of pain at this time. Feel she is forcing his legs to do things at that. He has cut down to 1 pain pill per 4 hours as opposed to 2. He has been struggling with some of his exercises and has questions. Reported Pain Level Pain Score 2: Self Report Assessment PT Clinical Summary Patient presents with signs and symptoms consistent with post operative TKA. Patient showing significant swelling but also very good early ROM measures and has been complaint with stretching routine once performance correction was ensured. Will benefit form skilled therapy for continued education, gait training, and functional training and we objectively progress. Plan of Care Interventions Gait Training,Manual Therapy,Neuro Re-education, Therapeutic Activities,Therapeutic Exercise PT Services Indicated Yes Treatment Frequency and 2x/week for 10 visits Duration These treatments will address the objective and functional deficits as defined above. The patient will be advanced safely and appropriately in order for the patient to progress towards his/her prior level of function. Additional exercises will be introduced and as well as a comprehensive home exercise program upon discharge, if needed, ?to ensure carryover of functional gains achieved in the clinic. This treatment plan has been reviewed and agreement upon by the patient.
--- NOTE | 2023-08-17 11:11 | PCPTNOTE ---
Pt No Showed visit today, called and LM with next day and appt. time.
--- NOTE | 2023-08-26 18:13 | PTOPDC ---
Assessment and note entered by Winnie Reddy, PT Evaluation Information Assessment Status Discharge Diagnosis Post Operative Left TKA, Left knee pain Onset 06/16/23 Subjective Information Pt reports he was at an outdoor function yesterday and is feeling sore today. He states he goes up an incline and going down was worse on his knees. He reports he is icing the hamstrings and lateral thigh muscles despite no ice protocol from MD. States that he only put ice very rarely when the pain is severe. Sates his pain had been significantly low except yesterday and last night when he was really sore. Assessment PT Clinical Summary Pt demos significant progress with skilled PT, demos normal L knee flexion AROM (130 deg); mild limitation to L knee extension (lacking 3 deg). However, pt reports he is walking better and is able to perform alternating steps on stairs with handrails. States he is compliant with HEPs. Continue to feel pain to L knee, will consult with Ortho tomorrow for updates. Skilled PT not necessary at this time. Plan of Care PT Services Indicated No
== END 2023-08-27 11:10 | disposition home or self-care (01) ==
LOC: ANHPT 16:00
PROVIDERS: PCP Pediatrics; Visit Provider Orthopaedic Surgery
DX: Z47.1 Aftercare following joint replacement surgery (principal); M17.12 Unilateral primary osteoarthritis, left knee; Z96.652 Presence of left artificial knee joint
CPT/HCPCS: 97016; 97110; 97112; 97116; 97140; 97161; 97750